=== PATIENT | female | born 1980 | race African-American/Black ===

== ENCOUNTER 2016-06-12 05:24 | Emergency (ER) | payer BC ==
[~2016-06-12] VITALS: Ht 172.7 cm; Wt 122.2 kg
[~2016-06-12 05:24] MED LIST: AMOXICILLIN500 MG PO; CIPROFLOXACN500 MG PO; FERR SULFATE325 MG PO; GNP OMEPRAZOLE20 MG PO; LIPITOR80 MG PO; NAPROSYN500 MG PO; NO; ZOFRAN4 MG/TAB PO
[2016-06-12] MEDS ORDERED: ATORVASTATIN CA40 MG PO (05:35)
[2016-06-12 06:08] VITALS: BP 126/75
== END 2016-06-12 06:09 | disposition home or self-care (01) | DRG 156 ==
LOC: ED 05:24
PROC: 09C0XZZ Extirpation of Matter from Right External Ear, External Approach (ICD-10-PCS; principal; 2016-06-12)
DX: T16.1XXA Foreign body in right ear, initial encounter (principal); E78.00 Pure hypercholesterolemia, unspecified; X58.XXXA Exposure to other specified factors, initial encounter

== ENCOUNTER 2018-02-02 17:55 | Emergency (ER) | payer BC ==
[~2018-02-02] VITALS: Ht 172.7 cm; Wt 123.0 kg
[~2018-02-02 17:55] MED LIST changes: +ATORVASTATIN CA40 MG PO
[2018-02-02] MEDS ORDERED: METFORMIN500 MG PO (18:02)
[2018-02-02 18:37] LABS: HEMATOCRIT 37.5 % (37.0-47.0); HEMOGLOBIN 11.9 g/dl (12.0-16.0); IMMATURE GRANULOCYTES 0.3 % (0.0-5.0); MEAN CELL VOLUME 80.3 fL CALC (80.0-100.0); MEAN CORPUSCULAR HGB 25.5 pG CALC (26.0-32.0); MEAN CORPUSCULAR HGB CONC 31.7 g/L CALC (32.0-36.0); NEUT# 9.09 thou/uL (2.00-7.15); RED BLOOD COUNT 4.67 mill/uL (4.20-5.60); RED CELL DISTRI WIDTH 15.2 % (11.5-15.5)
[2018-02-02 18:38] LABS: URINE BILIRUBIN - DIPSTICK NEGATIVE (NEGATIVE); URINE BLOOD DIPSTICK LARGE (NEGATIVE); URINE COLOR YELLOW; URINE GLUCOSE - DIPSTICK NEGATIVE (NEGATIVE); URINE KETONE NEGATIVE (NEGATIVE); URINE NITRITE - DIPSTICK NEGATIVE (Negative); URINE PROTEIN - DIPSTICK TRACE mg/dL (NEG-TRACE); URINE UROBILINOGEN - DIPSTICK 0.2 E.U./dL (0.2)
[2018-02-02 18:41] LABS: URINE CLARITY SL CLOUDY; URINE LEUK ESTERASE LARGE (NEGATIVE)
[2018-02-02 18:42] LABS: ALBUMIN 4.5 g/dL (3.2-5.0); ALKALINE PHOSPHATASE 93 u/l (38-126); ANION GAP 16 (6-22 (CALC)); BILIRUBIN, TOTAL 1.1 mg/dL (0.0-1.4); BUN 13 mg/dL (7-17); BUN/CREATININE RATIO 14 (12-20 (CALC)); CARBON DIOXIDE 23 mmol/l (22-30); CHLORIDE 103 mmol/l (95-108); CREATININE 0.9 mg/dL (0.5-1.0); GFR > 60 ML/MIN (>=60 (CALC)); GFR FOR AFR.AMER. > 60 ML/MIN (>=60 (CALC)); LIPASE 33 u/l (23-300); POTASSIUM 4.2 mmol/l (3.5-5.1); SGOT/AST 28 u/l (14-36); SODIUM 138 mmol/l (137-146); TOTAL PROTEIN 8.5 g/dL (6.3-8.2)
[2018-02-02 18:46] LABS: URINE SQUAMOUS EPITHELIAL CELL FEW EPI/hpf (0-FEW); URINE WBC >100 WBC/hpf (0-5)
[2018-02-02] MEDS ORDERED: MACROBID100 MG PO (20:18)
[2018-02-02 20:40] VITALS: BP 109/50
== END 2018-02-02 20:45 | disposition home or self-care (01) | DRG 690 ==
LOC: ED 17:55
PROVIDERS: Family Medicine
DX: N39.0 Urinary tract infection, site not specified (principal); K80.20 Calculus of gallbladder without cholecystitis without obstruction; E11.9 Type 2 diabetes mellitus without complications; B96.20 Unspecified Escherichia coli [E. coli] as the cause of diseases classified elsewhere
CPT/HCPCS: Q9967

== ENCOUNTER 2020-04-15 18:44 | Emergency (ER) | payer OTHER ==
[~2020-04-15] VITALS: Ht 175.3 cm; Wt 127.3 kg
[~2020-04-15 18:44] MED LIST changes: +MACROBID100 MG PO; +METFORMIN500 MG PO
[2020-04-15] MEDS ORDERED: GLIPIZIDE5 MG PO (19:03)
[2020-04-15] MEDS ORDERED: ATORVASTATIN CA40 MG PO (19:03)
[2020-04-15] MEDS ORDERED: FEROSUL325 MG PO (19:04)
[2020-04-15 19:30] LABS: HEMATOCRIT 40.1 % (37.0-47.0); HEMOGLOBIN 12.4 g/dl (12.0-16.0); MEAN CELL VOLUME 80.7 fL CALC (80.0-100.0); MEAN CORPUSCULAR HGB 24.9 pG CALC (26.0-32.0); MEAN CORPUSCULAR HGB CONC 30.9 g/dL CAL (32.0-36.0); NEUT# 2.76 thou/uL (2.00-7.15); RED BLOOD COUNT 4.97 mill/uL (4.20-5.60); RED CELL DISTRI WIDTH 15.8 % (11.5-15.5)
[2020-04-15 19:38] LABS: HCG SERUM/URINE (NEG/POS) NEGATIVE (NEGATIVE)
[2020-04-15 19:49] LABS: ANION GAP 13 (6-22 (CALC)); BUN 10 mg/dL (7-17); BUN/CREATININE RATIO 11 (12-20 (CALC)); CARBON DIOXIDE 26 mmol/l (22-30); CHLORIDE 101 mmol/l (95-108); GFR > 60 ML/MIN (>=60 (CALC)); GFR FOR AFR.AMER. > 60 ML/MIN (>=60 (CALC)); POTASSIUM 3.6 mmol/l (3.5-5.1); SODIUM 137 mmol/l (137-146)
[2020-04-15 21:25] VITALS: BP 121/58
--- NOTE | 2020-04-16 11:23 | NUR ---
RECD CONSULT FOR [facility]AMLANIVIM[facility]. PT IS GOOD CANDIDATE. CALLED AND SPOKE WITH PT, SAYS SHE WANTS TO THINK ABOUT IT AND WILL CALL US BACK IF SHE DECIDES SHE WANTS TO RECEIVE.
== END 2020-04-15 21:40 | disposition home or self-care (01) | DRG 179 ==
LOC: ED 18:44
PROVIDERS: Family Medicine
DX: U07.1 COVID-19 (principal); R68.83 Chills (without fever); E11.9 Type 2 diabetes mellitus without complications; Z79.84 Long term (current) use of oral hypoglycemic drugs

== ENCOUNTER 2020-10-23 08:10 | Emergency (ER) | payer OTHER ==
[~2020-10-23] VITALS: Ht 172.7 cm; Wt 122.0 kg
[~2020-10-23 08:10] MED LIST changes: +FEROSUL325 MG PO; +GLIPIZIDE5 MG PO
[2020-10-23 09:17] LABS: URINE BILIRUBIN - DIPSTICK NEGATIVE (NEGATIVE); URINE BLOOD DIPSTICK LARGE (NEGATIVE); URINE COLOR YELLOW; URINE GLUCOSE - DIPSTICK NEGATIVE (NEGATIVE); URINE KETONE NEGATIVE (NEGATIVE); URINE LEUK ESTERASE NEGATIVE (NEGATIVE); URINE PROTEIN - DIPSTICK NEGATIVE (NEG-TRACE); URINE SPECIFIC GRAVITY 1.025; URINE UROBILINOGEN - DIPSTICK 0.2 E.U./dL (0.2)
[2020-10-23 09:34] LABS: URINE BACTERIA FEW hpf; URINE NITRITE - DIPSTICK NEGATIVE (Negative); URINE SQUAMOUS EPITHELIAL CELL MODERATE EPI/hpf (0-FEW)
[2020-10-23] MEDS ORDERED: ULTRAM50 MG PO (09:51)
[2020-10-23] MEDS ORDERED: FLEXERIL5 M1 PO (09:51)
[2020-10-23 10:00] VITALS: BP 144/93
== END 2020-10-23 10:00 | disposition home or self-care (01) | DRG 552 ==
LOC: ED 08:10
DX: M54.5 Low back pain (principal); E11.9 Type 2 diabetes mellitus without complications; Z79.84 Long term (current) use of oral hypoglycemic drugs

== ENCOUNTER 2021-11-23 08:36 | Emergency (ER) | payer OTHER ==
[~2021-11-23] VITALS: Ht 175.3 cm; Wt 129.5 kg
[~2021-11-23 08:36] MED LIST changes: +FLEXERIL5 M1 PO; +ULTRAM50 MG PO
[2021-11-23 08:42] VITALS: BP 139/86
[2021-11-23 08:46] VITALS: BP 141/88
[2021-11-23 09:01] VITALS: BP 141/88
[2021-11-23 09:17] LABS: URINE BILIRUBIN - DIPSTICK NEGATIVE (NEGATIVE); URINE BLOOD DIPSTICK LARGE (NEGATIVE); URINE COLOR RED; URINE GLUCOSE - DIPSTICK NEGATIVE (NEGATIVE); URINE KETONE NEGATIVE (NEGATIVE); URINE LEUK ESTERASE NEGATIVE (NEGATIVE); URINE NITRITE - DIPSTICK POSITIVE (Negative); URINE PH 5.5 (4.5-8.0); URINE PROTEIN - DIPSTICK 100 mg/dL (NEG-TRACE); URINE SPECIFIC GRAVITY 1.025
[2021-11-23 09:18] LABS: URINE BACTERIA FEW hpf; URINE RBC TNTC RBC/hpf (0-5); URINE WBC 0-2 WBC/hpf (0-5)
[2021-11-23] MEDS ORDERED: NAPROXEN500 MG PO (10:39)
== END 2021-11-23 10:40 | disposition home or self-care (01) | DRG 552 ==
LOC: ED 08:36
PROVIDERS: Emergency Medicine
DX: S13.9XXA Sprain of joints and ligaments of unspecified parts of neck, initial encounter (principal); E11.9 Type 2 diabetes mellitus without complications; I10 Essential (primary) hypertension; V43.52XA Car driver injured in collision with other type car in traffic accident, initial encounter; Z79.84 Long term (current) use of oral hypoglycemic drugs

== ENCOUNTER 2022-09-23 06:59 | Emergency (ER) | payer BC ==
[~2022-09-23] VITALS: Ht 175.3 cm; Wt 125.6 kg
[~2022-09-23 06:59] MED LIST changes: +NAPROXEN500 MG PO
[2022-09-23 07:03] VITALS: BP 141/101
[2022-09-23 07:20] VITALS: BP 121/82
[2022-09-23 07:40] VITALS: BP 135/85
[2022-09-23] MEDS ORDERED: AMOX/K CLAV875 M1 PO (07:58)
[2022-09-23 08:00] VITALS: BP 124/96
[2022-09-23] MEDS ORDERED: DIFLUCAN150 MG PO (08:02)
[2022-09-23 08:13] VITALS: BP 124/96
== END 2022-09-23 08:30 | disposition home or self-care (01) | DRG 153 ==
LOC: ED 06:59
DX: J02.0 Streptococcal pharyngitis (principal); E11.9 Type 2 diabetes mellitus without complications; Z79.84 Long term (current) use of oral hypoglycemic drugs; Z20.822 Contact with and (suspected) exposure to COVID-19

== ENCOUNTER 2023-04-03 08:26 | Day surgery (SDC) | payer BC ==
[~2023-04-03] VITALS: Ht 175.3 cm; Wt 127.0 kg
[~2023-04-03 08:26] MED LIST changes: +ACETAMINOPHEN325 MG PO; +AMOX/K CLAV875 M1 PO; +ASPIRIN 81 LOW81 MG PO; +CLARITIN10 M1 PO; +D3; +DIFLUCAN150 MG PO; +GLIPIZIDE10 M2 PO; +HYDROCHLOROT25 MG PO; +NITROFURANTO100 MG PO
[2023-04-03] MEDS ORDERED: FAMOTIDINE 10MG/ML 2ML SDV IV ONE (08:35)
[2023-04-03] MEDS ORDERED: SODIUM CHLORIDE 0.9% 1,000 ML IV ONE (08:36)
[2023-04-03 11:33] VITALS: BP 155/105
[2023-04-03] MEDS ORDERED: LIDOCAINE HCL 2% 2ML SDV IV ONE (11:38)
[2023-04-03] MEDS ORDERED: PROPOFOL 500 MG/50 ML VIAL IV ONE (11:38)
[2023-04-03] MEDS ORDERED: SODIUM CHLORIDE 1,000 ML BTL IR ONE (12:45)
== END 2023-04-03 11:20 | disposition home or self-care (01) | DRG 376 ==
LOC: ENDO 08:26 → ORM 09:45 → ENDO 10:00
PROVIDERS: ATTEND Surgery
PROC: 0DBK8ZX Excision of Ascending Colon, Via Natural or Artificial Opening Endoscopic, Diagnostic (ICD-10-PCS; principal; 2023-04-03)
PROC: 0DBN8ZX Excision of Sigmoid Colon, Via Natural or Artificial Opening Endoscopic, Diagnostic (ICD-10-PCS; 2023-04-03)
PROC: 3E0H8KZ Introduction of Other Diagnostic Substance into Lower GI, Via Natural or Artificial Opening Endoscopic (ICD-10-PCS; 2023-04-03)
DX: C18.7 Malignant neoplasm of sigmoid colon (principal); D12.2 Benign neoplasm of ascending colon; K64.8 Other hemorrhoids; I10 Essential (primary) hypertension; E11.9 Type 2 diabetes mellitus without complications; K80.20 Calculus of gallbladder without cholecystitis without obstruction; Z79.84 Long term (current) use of oral hypoglycemic drugs; Z80.0 Family history of malignant neoplasm of digestive organs

== ENCOUNTER 2024-03-21 08:41 | Emergency (ER) | payer BC ==
[~2024-03-21] VITALS: Ht 175.3 cm; Wt 122.0 kg
[~2024-03-21 08:41] MED LIST changes: +MECLIZINE25 M1 PO; +OZEMPIC; +TYLENOL500 MG PO
[2024-03-21 08:49] VITALS: BP 109/57
[2024-03-21] MEDS ORDERED: NAPROXEN500 MG PO (09:46)
[2024-03-21 09:54] VITALS: BP 109/57
[2024-03-24] MEDS ORDERED: METOPROL TAR25 MG PO (11:00)
[2024-03-24] MEDS ORDERED: DEXILANT30 MG PO (11:01)
[2024-03-24] MEDS ORDERED: IBUPAK600 MG PO (11:05)
== END 2024-03-21 10:10 | disposition home or self-care (01) | DRG 566 ==
LOC: ED 08:41 → ED-I 09:55 → ED 10:10
DX: M77.32 Calcaneal spur, left foot (principal); S93.402A Sprain of unspecified ligament of left ankle, initial encounter; I10 Essential (primary) hypertension; E78.5 Hyperlipidemia, unspecified; E11.9 Type 2 diabetes mellitus without complications; X58.XXXA Exposure to other specified factors, initial encounter; Z79.85 Long-term (current) use of injectable non-insulin antidiabetic drugs; Z79.84 Long term (current) use of oral hypoglycemic drugs

== ENCOUNTER 2024-03-25 06:37 | Day surgery (SDC) | payer BC ==
[~2024-03-25] VITALS: Ht 172.7 cm; Wt 115.7 kg
[~2024-03-25 06:37] MED LIST changes: +DEXILANT30 MG PO; +IBUPAK600 MG PO; +METOPROL TAR25 MG PO
[2024-03-25] MEDS ORDERED: SODIUM CHLORIDE 0.9% 1,000 ML IV ONE (07:02)
[2024-03-25] MEDS ORDERED: FAMOTIDINE 10MG/ML 2ML SDV IV ONE (07:02)
[2024-03-25 09:03] VITALS: BP 119/75
[2024-03-25] MEDS ORDERED: LIDOCAINE HCL 2% 2ML SDV IV ONE (10:19)
[2024-03-25] MEDS ORDERED: PROPOFOL 200 MG/20 ML VIAL IV ONE (10:19)
[2024-03-25] MEDS ORDERED: GLYCOPYRROLATE 0.2 MG/ML IV ONE (10:19)
[2024-03-25] MEDS ORDERED: STERILE WATER FOR IRRIGATION 500 ML BTL IR ONE (14:42)
[2024-03-30] MEDS ORDERED: OMEPRAZOLE20 MG PO (09:29)
[2024-03-30] MEDS ORDERED: METRONIDAZOLE500 MG PO (09:29)
[2024-03-30] MEDS ORDERED: CLARITHROMYCIN500 MG PO (09:29)
== END 2024-03-25 09:16 | disposition home or self-care (01) | DRG 379 ==
LOC: ORM 06:37
PROVIDERS: ATTEND Surgery
PROC: 0DBE8ZX Excision of Large Intestine, Via Natural or Artificial Opening Endoscopic, Diagnostic (ICD-10-PCS; principal; 2024-03-25)
PROC: 0DB68ZX Excision of Stomach, Via Natural or Artificial Opening Endoscopic, Diagnostic (ICD-10-PCS; 2024-03-25)
DX: K29.71 Gastritis, unspecified, with bleeding (principal); B96.81 Helicobacter pylori [H. pylori] as the cause of diseases classified elsewhere; K44.9 Diaphragmatic hernia without obstruction or gangrene; K63.89 Other specified diseases of intestine; K64.4 Residual hemorrhoidal skin tags; K64.8 Other hemorrhoids; E11.9 Type 2 diabetes mellitus without complications; Z85.038 Personal history of other malignant neoplasm of large intestine; Z90.49 Acquired absence of other specified parts of digestive tract; Z79.84 Long term (current) use of oral hypoglycemic drugs; Z79.85 Long-term (current) use of injectable non-insulin antidiabetic drugs
CPT/HCPCS: J1596